=== PATIENT | male | born 1985 | race African-American/Black ===

== ENCOUNTER 2020-03-28 14:21 | Emergency (ER) | payer SELFPAY ==
[~2020-03-28] VITALS: Ht 175.3 cm; Wt 69.0 kg
[2020-03-28] MEDS ORDERED: BACITRACIN ZINC OINT UDPKT TOP ONE (16:00)
[2020-03-28] MEDS ORDERED: KETOROLAC 60MG/2ML VIAL IM ONE (16:00)
[2020-03-28] MEDS ORDERED: LIDOCAINE 1%/EPI 1:100,000 10 ML VIAL IJ ONE (16:00)
[2020-03-28] MEDS ORDERED: TETANUS, DIPHTHERIA, PERTUSSIS VAC/PF 0.5ML (>7YR OLD) IM ONE (16:00)
[2020-03-28] MEDS ORDERED: LIDOCAINE HCL/EPINEPHRINE 1%-EPI 1:100,000 20 ML VIAL INFIL ONE (17:00)
[2020-03-28 18:22] VITALS: BP 127/67
== END 2020-03-28 18:23 | disposition home or self-care (01) ==
LOC: ER 14:33
DX: S51.811A Laceration without foreign body of right forearm, initial encounter (principal); X58.XXXA Exposure to other specified factors, initial encounter; Y93.89 Activity, other specified; Y92.89 Other specified places as the place of occurrence of the external cause; Y99.8 Other external cause status; I10 Essential (primary) hypertension
CPT/HCPCS: 12002; 73090; 90471; 90715; 99283; J1885; J3490

== ENCOUNTER 2020-04-26 17:49 | Emergency (ER) | payer OTHER ==
[~2020-04-26] VITALS: Ht 177.8 cm; Wt 86.0 kg
[2020-04-26] MEDS ORDERED: KETOROLAC 60MG/2ML VIAL IM ONE (18:30)
[2020-04-26] MEDS ORDERED: KETOROLAC 30MG/ML VIAL IV ONE (18:45)
[2020-04-26 19:05] LABS: CHLORIDE 107 mEq/L (98-107)
[2020-04-26] MEDS ORDERED: BACITRACIN ZINC OINT UDPKT TOP SCH (20:00)
[2020-04-26 22:22] VITALS: BP 138/82
== END 2020-04-26 22:35 | disposition home or self-care (01) ==
LOC: ER 17:49
DX: S93.402A Sprain of unspecified ligament of left ankle, initial encounter (principal); S80.02XA Contusion of left knee, initial encounter; S80.01XA Contusion of right knee, initial encounter; R07.89 Other chest pain; I10 Essential (primary) hypertension; V03.90XA Pedestrian on foot injured in collision with car, pick-up truck or van, unspecified whether traffic or nontraffic accident, initial encounter; Y93.89 Activity, other specified; Y92.488 Other paved roadways as the place of occurrence of the external cause
CPT/HCPCS: 29515; 36415; 71101; 73562; 73610; 80053; 83690; 93005; 96374; 99285; J1885

== ENCOUNTER 2021-09-09 14:08 | Emergency (ER) | payer MEDICAID ==
[~2021-09-09] VITALS: Ht 177.8 cm; Wt 98.0 kg
[2021-09-09 14:25] VITALS: BP 151/102
[2021-09-09] MEDS ORDERED: IBUPROFEN 800MG TABLET PO ONE (14:45)
[2021-09-09] MEDS ORDERED: TETANUS, DIPHTHERIA, PERTUSSIS VAC/PF 0.5ML (>10YR OLD) IM ONE (14:45)
[2021-09-09] MEDS ORDERED: BACITRACIN ZINC OINT UDPKT TOP ONE (14:45)
[2021-09-09] MEDS ORDERED: IBUP-2030 MT (15:56)
[2021-09-09] MEDS ORDERED: HYDR-4001 MT (15:56)
== END 2021-09-09 16:06 | disposition left against medical advice (07) ==
LOC: ER 14:08 → CANBEDREQ 15:50 → ER 16:06
DX: S62.603A Fracture of unspecified phalanx of left middle finger, initial encounter for closed fracture (principal); S62.314A Displaced fracture of base of fourth metacarpal bone, right hand, initial encounter for closed fracture; I10 Essential (primary) hypertension; Y04.0XXA Assault by unarmed brawl or fight, initial encounter; Y93.89 Activity, other specified; Y92.9 Unspecified place or not applicable
CPT/HCPCS: 73130; 90715; 99283

== ENCOUNTER 2021-09-09 16:55 | Emergency (ER) | payer MEDICAID ==
[~2021-09-09] VITALS: Ht 177.8 cm; Wt 98.0 kg
[~2021-09-09 16:55] MED LIST: HYDR-4001 MT; IBUP-2030 MT
[2021-09-09 16:58] VITALS: BP 168/111
== END 2021-09-09 18:38 | disposition left against medical advice (07) ==
LOC: ER 16:55
DX: M79.89 Other specified soft tissue disorders (principal); S61.402A Unspecified open wound of left hand, initial encounter; S61.401A Unspecified open wound of right hand, initial encounter; R45.1 Restlessness and agitation; I10 Essential (primary) hypertension; Y04.0XXA Assault by unarmed brawl or fight, initial encounter; Y93.89 Activity, other specified; Y92.9 Unspecified place or not applicable
CPT/HCPCS: 99281

== ENCOUNTER 2021-09-12 12:07 | Emergency (ER) | payer MEDICAID ==
[~2021-09-12] VITALS: Ht 172.7 cm; Wt 91.0 kg
[2021-09-12] MEDS ORDERED: IBUPROFEN 600MG TABLET PO ONE (12:45)
[2021-09-12 14:25] VITALS: BP 139/88
== END 2021-09-12 15:10 | disposition left against medical advice (07) ==
LOC: ER 12:19
DX: S62.393A Other fracture of third metacarpal bone, left hand, initial encounter for closed fracture (principal); S62.395A Other fracture of fourth metacarpal bone, left hand, initial encounter for closed fracture; F23 Brief psychotic disorder; R45.1 Restlessness and agitation; W22.8XXA Striking against or struck by other objects, initial encounter; Y93.89 Activity, other specified; Y92.9 Unspecified place or not applicable
CPT/HCPCS: 73130; 99283

== ENCOUNTER 2021-09-30 19:41 | Emergency (ER) | payer MEDICAID ==
[~2021-09-30] VITALS: Ht 177.8 cm; Wt 78.0 kg
[2021-09-30] MEDS ORDERED: KETOROLAC 60MG/2ML VIAL IM ONE (20:45)
[2021-09-30] MEDS ORDERED: LIDOCAINE HCL/PF 1% 10 MG/ML 5ML VIAL INFIL ONE (22:15)
[2021-09-30] MEDS ORDERED: AMPICILLIN SOD/SULBACTAM NA 3 G in SODIUM CHLORIDE 0.9% 100 ML IV SCH (22:30)
[2021-09-30] MEDS ORDERED: LIDOCAINE HCL 1% 10 MG/ML 10ML VIAL INJ NR (22:30)
[2021-09-30] MEDS ORDERED: TETANUS, DIPHTHERIA, PERTUSSIS VAC/PF 0.5ML (>10YR OLD) IM ONE (22:30)
[2021-09-30 22:56] LABS: BASOPHILS % 0.7 % (0.0-2.0); EOSINOPHILS % 2.6 % (0.0-5.0); HEMATOCRIT. 41.4 % (42.0-52.0); HEMOGLOBIN. 14.1 g/dL (14.0-18.0); LYMPHOCYTES % 22.6 % (20.0-50.0); MEAN CORPUSCULAR HEMOGLOBIN 29.7 pg (28.0-32.0); MEAN CORPUSCULAR VOLUME 87.1 fL (80.0-94.0); MEAN PLATELET VOLUME 6.9 fl (7.4-10.4); MONOCYTES % 12.5 % (2.0-8.0); NEUTROPHILS % 61.6 % (40.0-76.0); PLATELET 340 x1000/uL (130-400); RED BLOOD CELL COUNT 4.76 mill/uL (4.7-6.1); RED CELL DISTRIBUTION WIDTH 12.8 % (11.6-14.6)
[2021-09-30 23:01] LABS: CHLORIDE 100 mEq/L (98-107)
[2021-09-30 23:16] VITALS: BP 137/92
[2021-09-30] MEDS ORDERED: AMOX-424 MT (23:40)
== END 2021-10-01 00:10 | disposition left against medical advice (07) ==
LOC: ER 19:41
DX: S62.333A Displaced fracture of neck of third metacarpal bone, left hand, initial encounter for closed fracture (principal); S62.335A Displaced fracture of neck of fourth metacarpal bone, left hand, initial encounter for closed fracture; S62.398A Other fracture of other metacarpal bone, initial encounter for closed fracture; S60.572A Other superficial bite of hand of left hand, initial encounter; L03.114 Cellulitis of left upper limb; I10 Essential (primary) hypertension; Y04.0XXA Assault by unarmed brawl or fight, initial encounter; Y04.1XXA Assault by human bite, initial encounter; Y93.89 Activity, other specified; Y92.9 Unspecified place or not applicable
CPT/HCPCS: 36415; 73090; 73110; 73130; 80053; 85025; 90471; 90715; 96365; 96372; 99284; J0295; J1885; J3490; J7050

== ENCOUNTER 2021-10-04 07:21 | Emergency (ER) | payer MEDICAID ==
[~2021-10-04] VITALS: Ht 177.8 cm; Wt 82.0 kg
[~2021-10-04 07:21] MED LIST changes: +AMOX-424 MT
[2021-10-04] MEDS ORDERED: IBUPROFEN 600MG TABLET PO ONE (07:30)
[2021-10-04] MEDS ORDERED: TETANUS, DIPHTHERIA, PERTUSSIS VAC/PF 0.5ML (>10YR OLD) IM ONE (07:30)
[2021-10-04 08:02] VITALS: BP 155/103
[2021-10-04] MEDS ORDERED: HALOPERIDOL LACTATE 5MG/ML VIAL IM ONE (09:00)
== END 2021-10-04 10:04 | disposition home or self-care (01) ==
LOC: ER 07:39
DX: S09.8XXA Other specified injuries of head, initial encounter (principal); Y08.89XA Assault by other specified means, initial encounter; Y93.89 Activity, other specified; Y92.89 Other specified places as the place of occurrence of the external cause; Y99.8 Other external cause status
CPT/HCPCS: 90471; 90715; 99283; Z7610